=== PATIENT | female | born 1990 | race African-American/Black ===

== ENCOUNTER 2017-12-26 14:11 | Emergency (ER) | payer SELFPAY ==
[~2017-12-26] VITALS: Ht 185.4 cm; Wt 107.0 kg
[2017-12-26 21:06] VITALS: BP 145/90
== END 2017-12-26 21:15 | disposition home or self-care (01) ==
LOC: ER 15:37
DX: S00.83XA Contusion of other part of head, initial encounter (principal); M54.2 Cervicalgia; M79.604 Pain in right leg; M79.605 Pain in left leg; V43.52XA Car driver injured in collision with other type car in traffic accident, initial encounter; Y93.89 Activity, other specified; Y99.8 Other external cause status; Y92.89 Other specified places as the place of occurrence of the external cause
CPT/HCPCS: 70450; 72125; 73590; 81025; 99284